=== PATIENT | female | born 1965 | race African-American/Black ===

== ENCOUNTER 2018-08-12 06:05 | Emergency (ER) | payer OTHER ==
[~2018-08-12] VITALS: Ht 157.5 cm; Wt 77.1 kg
[2018-08-12 06:12] VITALS: BP 164/108
--- NOTE | 2018-08-12 06:21 | NUR ---
53 Y/O F PRESENTED TO ED WITH C/O R ARM PAIN X 2 WEEKS, WORSENING LAST NIGHT. 10/10 PAIN, ACHING. PAIN RADIATES TO NECK. 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 +CMS. SELF MEDICATED WITH ADVIL AND MOTRIN, SOME EFFECTIVENESS. PT STATED ARM STARTED "TO HEAL THEN ON FRIDAY PAIN WORSENED AFTER DOING SYSTEMS SPECIALIST". BED IN LOWEST POSTION. ERMD NOTIFIED. WILL CONTINUE TO MONITOR.
[2018-08-12] MEDS ORDERED: KETOROLAC 60 MG/2 ML VIAL IM ONE (06:50)
--- NOTE | 2018-08-12 07:08 | NUR ---
BEDSIDE REPORT GIVEN TO HANNAH TIERNEY. TRANSFER OF CARE AT THIS TIME.
--- NOTE | 2018-08-12 07:08 | NUR ---
Received bedside report from HANNAH Patel. Pt's VSS. Pain has been improved.
--- NOTE | 2018-08-12 07:23 | NUR ---
Patient discharged with v/s stable. Written and verbal after care instructions given and explained. Patient alert, oriented and verbalized understanding of instructions. Ambulatory with steady gait. All questions addressed prior to discharge. ID band removed. Patient advised to follow up with PMD. Rx of MOTRIN 800 MG, NORCO 5/325 MG given. Patient educated on indication of medication including possible reaction and side effects. Opportunity to ask questions provided and answered.
[2018-08-12 07:24] VITALS: BP 143/98
== END 2018-08-12 07:23 | disposition home or self-care (01) ==
LOC: MED 06:05
DX: M25.511 Pain in right shoulder (principal); Z88.0 Allergy status to penicillin; Z88.6 Allergy status to analgesic agent
CPT/HCPCS: 96372; 99283; J1885